=== PATIENT | female | born 1995 | race Caucasian/White ===

== ENCOUNTER 2017-02-26 19:23 | Emergency (ER) | payer OTHER ==
[~2017-02-26] VITALS: Ht 162.6 cm; Wt 52.2 kg
[~2017-02-26 19:23] MED LIST: MONOTAB PO
[2017-02-26 19:26] VITALS: BP 129/71; PULSE 90; RESP 16; TEMP 98.5; O2SAT 100
--- NOTE | 2017-02-26 19:38 | PD ---
HPI Chief Complaint: Injury Time Seen by Provider: 19:35 Travel History International Travel<30 days: No Contact w/Intl Traveler<30days: No Traveled to known affect area: No History of Present Illness HPI 22 year old female with right hand pain. Patient reports while at work this evening a swinging door hit her in the hand. She has pain with flexion and extension of the fifth digit. Denies paresthesias or weakness of the extremity. No other injury. Pain severity moderate. PFSH Past Medical History Medical History: Denies Significant Hx Diminished Hearing: No Immunizations Current: Yes Tetanus Vaccination: > 5 Years Influenza Vaccination: No ?: Not LMP: ON NOW Past Surgical History Surgical History: No Previous Surgery Social History Alcohol Use: Yes (OCC) Tobacco Use: No Substance Use: No Allergies-Medications (Allergen,Severity, Reaction): Coded Allergies: No Known Allergies (Unverified Adverse Reaction, Unknown, 02/26/17) Reported Meds & Prescriptions Reported Meds & Active Scripts Active Mononessa (Norgestimate-Ethinyl Estradiol) 0.25-35 Mg-Mcg Tab 1 Tab PO DAILY Review of Systems Except as stated in HPI: all other systems reviewed are Neg Physical Exam Narrative GENERAL: SKIN: Warm and dry. HEAD: Normocephalic. EYES: No scleral icterus. No injection or drainage. NECK: Supple, trachea midline. MUSCULOSKELETAL: No cyanosis, or edema. Right hand: Tenderness to the fifth metacarpal and fifth digit. No deformity. Patient is able to fully flex and extend the finger. Brisk cap refill Data Data Last Documented VS Vital Signs Date Time Temp Pulse Resp B/P (MAP) Pulse Ox O2 Delivery O2 Flow Rate FiO2 02/26/17 19:26 98.5 90 16 129/71 (90) 100 Orders Orders Hand, Complete (Hsi1zet) (02/26/17 ) [facility] Medical Decision Making Medical Screen Exam Complete: Yes Emergency Medical Condition: Yes Differential Diagnosis Contusion, fracture, finger dislocation Narrative Course 22-year-old female here for evaluation of right hand pain. X-rays negative for fracture. Diagnosis Primary Impression: Hand contusion Qualified Codes: S60.221A - Contusion of right hand, initial encounter Referrals: Primary Care Physician Additional Instructions: Ice and elevate the extremity. Tylenol or ibuprofen as needed for pain. Disposition: 01 DISCHARGE HOME Condition: Stable Alanis Lane Feb 26, 2017 19:38
--- NOTE | 2017-02-26 20:11 | RADRPT ---
EXAM DATE/TIME: 02/26/2017 19:46 [facility] COMPARISON: No previous studies available for comparison. INDICATIONS : Jammed hand in door, right 5th metacarpal pain. MEDICAL HISTORY : None. SURGICAL HISTORY : None. ENCOUNTER: Initial ACUITY: 1 day PAIN SCORE: 5/10 LOCATION: Right hand. FINDINGS: 3 views right hand. Small age-indeterminate volar plate fracture at the base of the small finger midd le phalanx. No other fractures identified. Alignment of the joints within normal limits. CONCLUSION: Small age-indeterminate volar plate fracture of the small finger middle phalanx. Chevy Garcia MD on February 26, 2017 at 20:08 Board Certified Radiologist. This report was verified electronically.
== END 2017-02-26 20:17 | disposition home or self-care (01) ==
LOC: PHEFT 19:23
DX: S60.221A Contusion of right hand, initial encounter (principal); W22.8XXA Striking against or struck by other objects, initial encounter
CPT/HCPCS: 73130; 99283

== ENCOUNTER 2017-05-25 09:44 | Emergency (ER) | payer OTHER ==
[~2017-05-25] VITALS: Ht 162.6 cm; Wt 51.6 kg
[2017-05-25 09:50] VITALS: BP 140/58; PULSE 145; RESP 18; TEMP 100.3; O2SAT 99
[2017-05-25] MEDS ORDERED: SODIUM CHLOR 0.9% 1000 ML INJ 1,000 ML IV ONE ×2 (10:15)
[2017-05-25] MEDS ORDERED: ACETAMINOPHEN 325 MG TAB PO ONE (10:15)
--- NOTE | 2017-05-25 10:16 | PD ---
HPI Chief Complaint: Cold / Flu Symptoms Time Seen by Provider: 09:57 Travel History International Travel<30 days: No Contact w/Intl Traveler<30days: No Traveled to known affect area: No History of Present Illness HPI This 22-year-old female since being sick off and on for a couple of weeks. She initially went to an urgent care center a couple weeks ago. She was told she had strep throat. She was given prescription for Z-Ke and prednisone that she felt okay for about 4 days. She then started having symptoms again and went back to urgent care center yesterday and was given prescription for Augmentin and prednisone. She had a chest x-ray done which she was told was negative. PFSH Past Medical History Diminished Hearing: No Respiratory: Yes (bronchitis ) Immunizations Current: Yes Tetanus Vaccination: Unknown Influenza Vaccination: No ?: Not LMP: 05/25/17 Past Surgical History Surgical History: No Previous Surgery Social History Alcohol Use: Yes (OCC) Tobacco Use: No Substance Use: No Allergies-Medications (Allergen,Severity, Reaction): Coded Allergies: No Known Allergies (Unverified Adverse Reaction, Unknown, 05/25/17) Reported Meds & Prescriptions Reported Meds & Active Scripts Active Mononessa (Norgestimate-Ethinyl Estradiol) 0.25-35 Mg-Mcg Tab 1 Tab PO DAILY Review of Systems General / Constitutional: Positive: Fever, Chills Eyes: No: Diploplia, Blurred Vision HENT: Positive: Headaches, Sore Throat, Rhinitis Cardiovascular: Positive: Tachycardia, No: Chest Pain or Discomfort, Palpitations Respiratory: Positive: Cough Gastrointestinal: Positive: Nausea Genitourinary: No: Urgency, Frequency Musculoskeletal: Positive: Myalgias Skin: No Rash Endocrine: No: Heat Intolerance Hematologic/Lymphatic: No: Easy Bruising Physical Exam Narrative GENERAL: Well-developed female SKIN: Focused skin assessment warm/dry. HEAD: Atraumatic. Normocephalic. EYES: Pupils equal and round. No scleral icterus. No injection or drainage. ENT: No nasal bleeding or discharge. Mucous membranes pink and moist. Mild redness of the throat NECK: Trachea midline. No JVD. CARDIOVASCULAR: Regular rate and rhythm. No murmur appreciated. RESPIRATORY: No accessory muscle use. Clear to auscultation. Breath sounds equal bilaterally. GASTROINTESTINAL: Abdomen soft, non-tender, nondistended. Hepatic and splenic margins not palpable. MUSCULOSKELETAL: No obvious deformities. No clubbing. No cyanosis. No edema. NEUROLOGICAL: Awake and alert. No obvious cranial nerve deficits. Motor grossly within normal limits. Normal speech. PSYCHIATRIC: Appropriate mood and affect; insight and judgment normal. Data Data Last Documented VS Vital Signs Date Time Temp Pulse Resp B/P (MAP) Pulse Ox O2 Delivery O2 Flow Rate FiO2 05/25/17 10:08 Room Air 05/25/17 09:50 100.3 145 18 140/58 (85) 99 Orders Orders Complete Blood Count With Diff (05/25/17 10:04) Comprehensive Metabolic Panel (05/25/17 10:04) Urinalysis - C+S If Indicated (05/25/17 10:04) Sodium Chlor 0.9% 1000 Ml Inj (Ns 1000 M (05/25/17 10:15) Sodium Chlor 0.9% 1000 Ml Inj (Ns 1000 M (05/25/17 10:15) Acetaminophen (Tylenol) (05/25/17 10:15) Influenzae A/B Antigen (05/25/17 10:04) Lactic Acid Sepsis Protocol (05/25/17 10:12) Blood Culture (05/25/17 10:12) Labs Laboratory Tests Test 05/25/17 10:20 05/25/17 10:25 Urine Collection Type CLEAN CATCH Urine Color YELLOW Urine Turbidity CLEAR Urine pH 6.0 Urine Specific [place] 1.025 Urine Protein TRACE mg/dL Urine Glucose (UA) NEG mg/dL Urine Ketones NEG mg/dL Urine Occult Blood MOD Urine Nitrite NEG Urine Bilirubin NEG Urine Urobilinogen 0.2 MG/DL Urine Leukocyte Esterase NEG Urine RBC 10-14 /hpf Urine WBC 0-2 /hpf Urine Squamous Epithelial Cells 6-8 /hpf Microscopic Urinalysis Comment CULT NOT INDICATED Urine Collection Time 10:20 White Blood Count 6.6 TH/MM3 Red Blood Count 4.01 MIL/MM3 Hemoglobin 12.5 GM/DL Hematocrit 35.7 % Mean Corpuscular Volume 89.0 FL Mean Corpuscular Hemoglobin 31.1 PG Mean Corpuscular Hemoglobin Concent 35.0 % Red Cell Distribution Width 12.8 % Platelet Count 137 TH/MM3 Mean Platelet Volume 9.6 FL Neutrophils (%) (Auto) 85.8 % Lymphocytes (%) (Auto) 3.3 % Monocytes (%) (Auto) 8.9 % Eosinophils (%) (Auto) 0.1 % Basophils (%) (Auto) 1.9 % Neutrophils # (Auto) 5.7 TH/MM3 Lymphocytes # (Auto) 0.2 TH/MM3 Monocytes # (Auto) 0.6 TH/MM3 Eosinophils # (Auto) 0.0 TH/MM3 Basophils # (Auto) 0.1 TH/MM3 CBC Comment DIFF FINAL Differential Comment Blood Urea Nitrogen 8 MG/DL Creatinine 0.86 MG/DL Random Glucose 97 MG/DL Total Protein 7.4 GM/DL Albumin 3.7 GM/DL Calcium Level 8.6 MG/DL Alkaline Phosphatase 53 U/L Aspartate Amino Transf (AST/SGOT) 19 U/L Alanine Aminotransferase (ALT/SGPT) 18 U/L Total Bilirubin 0.2 MG/DL Sodium Level 138 MEQ/L Potassium Level 3.5 MEQ/L Chloride Level 105 MEQ/L Carbon Dioxide Level 23.6 MEQ/L Anion Gap 9 MEQ/L Estimat Glomerular Filtration Rate 82 ML/MIN Lactic Acid Level 1.8 mmol/L [facility] Medical Decision Making Medical Screen Exam Complete: Yes Emergency Medical Condition: Yes Medical Record Reviewed: Yes Differential Diagnosis Differential includes viral syndrome, pneumonia, influenza Narrative Course Patient had a chest x-ray yesterday which was reported to be negative her exam is not consistent with pneumonia so I have not repeated the x-ray. Her white count is 6.6. Her test for influenza is positive for influenza A. She is out of the window for Tamiflu. Patient was given prescriptions yesterday for prednisone and Augmentin. I have recommended that she not take these medications Diagnosis Primary Impression: Influenza A Additional Instructions: Stop prednisone and Augmentin Disposition: 01 DISCHARGE HOME Condition: Stable Narciso Cruz MD May 25, 2017 10:16
[2017-05-25 10:42] LABS: AUTOMATED NEUTROPHIL # 5.7 TH/MM3 (1.8-7.7); BASOPHIL # 0.1 TH/MM3 (0-0.2); BASOPHIL % 1.9 % (0.0-2.0); EOSINOPHIL % 0.1 % (0.0-4.0); HEMATOCRIT 35.7 % (35.0-46.0); HEMOGLOBIN 12.5 GM/DL (11.6-15.3); LYMPH % 3.3 % (9.0-44.0); LYMPHOCYTE # 0.2 TH/MM3 (1.0-4.8); MEAN CORPUSCULAR HEMOGLOBIN 31.1 PG (27.0-34.0); MEAN PLATELET VOLUME 9.6 FL (7.0-11.0); MONO % 8.9 % (0.0-8.0); MONOCYTE # 0.6 TH/MM3 (0-0.9); NEUT % 85.8 % (16.0-70.0); PLATELET COUNT 137 TH/MM3 (150-450); RED BLOOD COUNT 4.01 MIL/MM3 (4.00-5.30); RED CELL DISTRIBUTION WIDTH 12.8 % (11.6-17.2); WHITE BLOOD COUNT 6.6 TH/MM3 (4.0-11.0)
[2017-05-25 10:43] LABS: BILIRUBIN, URINE NEG (NEG); BLOOD, URINE MOD (NEG); GLUCOSE,URINE NEG (NEG); KETONE, URINE NEG (NEG); NITRITE,URINE NEG (NEG); URINE COLOR YELLOW (YELLW/STRAW); URINE LEUKOCYTE ESTERASE NEG (NEG)
[2017-05-25 10:49] LABS: WBC, URINE 0-2 /hpf (0-5)
[2017-05-25 10:51] LABS: CHLORIDE 105 MEQ/L (98-107); SODIUM (NA) 138 MEQ/L (136-145)
[2017-05-25 10:54] LABS: CALCIUM 8.6 MG/DL (8.5-10.1)
[2017-05-25 10:55] LABS: ALBUMIN 3.7 GM/DL (3.4-5.0); BICARBONATE 23.6 MEQ/L (21.0-32.0); BLOOD UREA NITROGEN 8 MG/DL (7-18); GLUCOSE,RANDOM 97 MG/DL (74-106)
[2017-05-25 10:58] LABS: ALT (GPT) 18 U/L (10-53); AST (GOT) 19 U/L (15-37); CREATININE 0.86 MG/DL (0.50-1.00); GLOMERULAR FILTRATION RATE 82 ML/MIN (>89)
[2017-05-25 11:00] LABS: TOTAL BILIRUBIN ADULT 0.2 MG/DL (0.2-1.0); TOTAL PROTEIN 7.4 GM/DL (6.4-8.2)
[2017-05-25 11:01] LABS: ALKALINE PHOSPHATASE 53 U/L (45-117)
[2017-05-25 12:08] VITALS: BP 99/53; TEMP 101.3
== END 2017-05-25 12:11 | disposition home or self-care (01) ==
LOC: PHED 09:44
DX: J09.X2 Influenza due to identified novel influenza A virus with other respiratory manifestations (principal); R50.9 Fever, unspecified; R51 Headache; R07.0 Pain in throat; R00.0 Tachycardia, unspecified; R05 Cough; R11.0 Nausea; M79.1 Myalgia
CPT/HCPCS: 80053; 81001; 83605; 85025; 87040; 87804; 96360; 99284; J7030